=== PATIENT | female | born 1940 | race Asian ===

== ENCOUNTER 2018-05-14 15:12 | Emergency (ER) | payer MEDICARE, MEDICAID ==
[~2018-05-14] VITALS: Ht 160 cm; Wt 54.4 kg
[2018-05-14 15:20] VITALS: BP 130/52
--- NOTE | 2018-05-14 15:20 | NUR ---
ED Nurse Note: BROUGHT IN BY RA 829 FROM HOME DUE TO SLIPPED AND FALL INJURY. C/O RIGHT HIP PAIN 11/28, NO BRUISES AND NO TRAUMA NOTED ON THE SITE. PER PT, SHE SLIPPED AND FELL AT THE [facility]. DENIES HEAD INJURY NOR LOC. PAIN REMAINED AFTER SHE CAME HOME SO HER CALLED 911. A/OX4. NO S/S OF DISTRESS. WILL CONTINUE TO MONITOR.
[2018-05-14] MEDS ORDERED: Morphine Sulfate 2mg/ml Inj(IV/IM USE ONLY) IVP ONE ×2 (15:30→19:45)
--- NOTE | 2018-05-14 15:38 | Emergency Room Report ---
History of Present Illness General Chief Complaint: Multiple Trauma/Fall Source: Patient, EMS Present Illness HPI 77-year-old female with history of hypertension presenting with fall. Patient says that she went to an adult care center, when she went home, she had a slip and fall. She fell onto her right side. She says she did not hit her head or lose consciousness. She she was able to crawl and get her her phone and then call her sister. Her then called 911 and brought her to the emergency room. She happening of severe right-sided leg pain. No chest pain or shortness of breath no headache no blurry vision. does not Take any blood thinners Allergies: Coded Allergies: No Known Allergies (Unverified , 05/14/18) Patient History Past Medical History: see triage record Past Surgical History: none Pertinent Family History: none Reviewed Nursing Documentation: PMH: Agreed; PSxH: Agreed Nursing Documentation-PMH Past Medical History: No History, Except For Hx Cardiac Problems: No - high cholesterol Review of Systems All Other Systems: negative except mentioned in HPI Physical Exam Vital Signs Date Time Temp Pulse Resp B/P (MAP) Pulse Ox O2 Delivery O2 Flow Rate FiO2 05/14/18 15:12 98.8 86 14 169/65 98 Room Air Sp02 EP Interpretation: reviewed, normal General Appearance: alert, GCS 15, non-toxic, moderate distress Head: normocephalic, atraumatic Eyes: bilateral eye normal inspection, bilateral eye PERRL, bilateral eye EOMI ENT: normal ENT inspection, normal pharynx, normal voice, moist mucus membranes Neck: normal inspection, full range of motion, supple Respiratory: normal inspection, lungs clear, normal breath sounds, no respiratory distress, no retraction, no wheezing, speaking full sentences, chest symmetrical Cardiovascular #1: normal inspection, regular rate, rhythm, no edema, normal capillary refill Cardiovascular #2: 2+ radial (R), 2+ radial (L) Gastrointestinal: normal inspection, non tender, soft, non-distended, no guarding Musculoskeletal: other - Right lower extremity is slightly shortened and externally rotated, limited range of motion secondary to pain. Distal pulses are intact. No ecchymosis or hematoma. Neurologic: normal inspection, alert, oriented x3, responsive, motor strength/ tone normal, sensory intact, normal gait, speech normal Psychiatric: normal inspection, judgement/insight normal, memory normal Skin: normal inspection, normal color, no rash, warm/dry, well hydrated, normal turgor Medical Decision Making Diagnostic Impression: Primary Impression: Femur fracture, right ER Course 77-year-old female with right-sided hip pain status post fall DDX: Fracture versus contusion. Did not hit her head or lose consciousness. She is awake alert patients for and neurologically intact Plan: Obtain labs, ua, EKG, CXR X-rays of the right hip ER course: Patient has been monitored during ED stay, HD stable Given pain medication +femoral neck fx neurovascularly intact Disposition: Patient is to be xferred to [place] due to insurance purposes spoke with Dr Feliciano who has accepted pt for xfer Please note that this Emergency Department Report was dictated using [employer]unalyticscard cutter helper technology software, occasionally this can lead to erroneous entry secondary to interpretation by the dictation equipment. EKG Diagnostic Results EP Interpretation: Yes Rate: normal Rhythm: NSR ST Segments: No acute changes ASA given to patient: No Rhythm Strip EP Interpretation: Yes Rate: 92 Rhythm: NSR, no PVCs, no ectopy Chest X-ray CXR: Ordered: Yes 1 view Indication: pre op EP interpretation: Yes Interpretation: slight cardiomegaly, blunting of R costophrenic angle Impression:slight cardiomegaly, blunting of R costophrenic angle Electronically signed by Leyt Brown MD Xray: Right hip Complete Indication: Pain EP Interpretation: Yes Interpretation: femoral neck fx Impression: femoral neck fx Electronically signed by Lety Brown MD Xray: Right femur 2 view Indication: Pain EP Interpretation: Yes Interpretation: femoral neck fx Impression:femoral neck fx Electronically signed by Lety Brown MD Laboratory Tests Test 05/14/18 15:55 05/14/18 16:55 White Blood Count 7.2 K/UL (4.8-10.8) Red Blood Count 4.40 M/UL (4.20-5.40) Hemoglobin 13.1 G/DL (12.0-16.0) Hematocrit 40.7 % (37.0-47.0) Mean Corpuscular Volume 92 FL (80-99) Mean Corpuscular Hemoglobin 29.8 PG (27.0-31.0) Mean Corpuscular Hemoglobin Concent 32.2 G/DL (32.0-36.0) Red Cell Distribution Width 13.2 % (11.6-14.8) Platelet Count 207 K/UL (150-450) Mean Platelet Volume 7.0 FL (6.5-10.1) Neutrophils (%) (Auto) 67.4 % (45.0-75.0) Lymphocytes (%) (Auto) 23.1 % (20.0-45.0) Monocytes (%) (Auto) 7.0 % (1.0-10.0) Eosinophils (%) (Auto) 2.1 % (0.0-3.0) Basophils (%) (Auto) 0.5 % (0.0-2.0) Prothrombin Time 10.2 SEC (9.30-11.50) Prothrombin Time INR 1.0 (0.9-1.1) PTT 24 SEC (23-33) Sodium Level 143 MMOL/L (136-145) Potassium Level 3.9 MMOL/L (3.5-5.1) Chloride Level 105 MMOL/L (98-107) Carbon Dioxide Level 25 MMOL/L (21-32) Anion Gap 13 mmol/L (5-15) Blood Urea Nitrogen 14 mg/dL (7-18) Creatinine 0.7 MG/DL (0.55-1.30) Estimate Glomerular Filtration Rate mL/min (>60) Glucose Level 145 MG/DL (74-106) H Calcium Level 9.8 MG/DL (8.5-10.1) Total Bilirubin 0.3 MG/DL (0.2-1.0) Aspartate Amino Transferase (AST) 21 U/L (15-37) Alanine Aminotransferase (ALT) 34 U/L (12-78) Alkaline Phosphatase 58 U/L (46-116) Total Creatine Kinase 97 U/L (26-308) Total Protein 7.4 G/DL (6.4-8.2) Albumin 3.7 G/DL (3.4-5.0) Globulin 3.7 g/dL Albumin/Globulin Ratio 1.0 (1.0-2.7) Urine Color Pending Urine Appearance Pending Urine pH Pending Urine Specific [place] Pending Urine Protein Pending Urine Glucose (UA) Pending Urine Ketones Pending Urine Blood Pending Urine Nitrite Pending Urine Bilirubin Pending Urine Urobilinogen Pending Urine Leukocyte Esterase Pending Last Vital Signs Date Time Temp Pulse Resp B/P (MAP) Pulse Ox O2 Delivery O2 Flow Rate FiO2 05/14/18 15:20 88 21 Room Air 05/14/18 15:20 98.8 130/52 100 Disposition: XFER SHT-[facility]M HOSP Condition: Serious Scripts Unable to Obtain Active Prescriptions or Reported Meds Lety Brown M.D. May 14, 2018 15:38
[2018-05-14 16:22] LABS: BASOPHILS % (AUTO) 0.5 % (0.0-2.0); EOSINOPHILS % (AUTO) 2.1 % (0.0-3.0); HEMATOCRIT 40.7 % (37.0-47.0); HEMOGLOBIN 13.1 G/DL (12.0-16.0); LYMPHOCYTES % (AUTO) 23.1 % (20.0-45.0); MEAN CORPUSCULAR VOLUME 92 FL (80-99); NEUTROPHILS % (AUTO) 67.4 % (45.0-75.0); PLATELET COUNT 207 K/UL (150-450); RED CELL DISTRIBUTION WIDTH 13.2 % (11.6-14.8); WHITE BLOOD COUNT 7.2 K/UL (4.8-10.8)
--- NOTE | 2018-05-14 16:25 | NUR ---
ED Nurse Note: ERMD MADE AWARE THE PT WANTS TO URINATE. RECEIVED VERBAL ORDER TO INSERT COHEN CATH DUE TO PT'S FRACTURE. 16 FR COHEN CATH INSERTED.
[2018-05-14 16:34] LABS: ANION GAP 13 mmol/L (5-15); BLOOD UREA NITROGEN 14 mg/dL (7-18); CALCIUM 9.8 MG/DL (8.5-10.1); CARBON DIOXIDE 25 MMOL/L (21-32); CHLORIDE 105 MMOL/L (98-107); CREATININE 0.7 MG/DL (0.55-1.30); POTASSIUM 3.9 MMOL/L (3.5-5.1); SODIUM 143 MMOL/L (136-145)
[2018-05-14 16:40] LABS: ALANINE AMINOTRANSFERASE 34 U/L (12-78); ALBUMIN 3.7 G/DL (3.4-5.0); ALKALINE PHOSPHATASE 58 U/L (46-116); ASPARTATE AMINO TRANSFERASE 21 U/L (15-37); BILIRUBIN,TOTAL 0.3 MG/DL (0.2-1.0); CREATINE KINASE 97 U/L (26-308)
--- NOTE | 2018-05-14 16:54 | NUR ---
ED Nurse Note: PT'S BELONGINGS EXCEPT FOR ONE NECKLACE WERE SENT HOME WITH PT'S SISTER, RAVEN LAWRENCE. PT SIGNED BELONGING LIST. URINE COLLECTED AND SENT DOWN TO THE LAB.
--- NOTE | 2018-05-14 17:10 | NUR ---
spoke to [facility]it will call back for md to md consult
[2018-05-14 17:19] LABS: APPEARANCE,URINE SLIGHTLY CLOUDY; BILIRUBIN, URINE NEGATIVE (NEGATIVE); COLOR,URINE PALE YELLOW; GLUCOSE, URINE (UA) NEGATIVE (NEGATIVE); KETONES,URINE NEGATIVE (NEGATIVE); LEUKOCYTE ESTERASE ,URINE 2+ (NEGATIVE); NITRITE,URINE NEGATIVE (NEGATIVE); PH,URINE 6.5 (4.5-8.0); PROTEIN,URINE NEGATIVE (NEGATIVE); UROBILINOGEN,URINE NORMAL MG/DL (0.0-1.0)
[2018-05-14] MEDS ORDERED: Lidocaine 1% MPF 10mg/ml 5ml INJ ONE (18:00)
--- NOTE | 2018-05-14 19:10 | NUR ---
HAND-OFF: Report given to LUCY PERRY. NO S/S OF DISTRESS. PT AND PT'S FAMILY MEMBER MADE AWARE OF THE TRANSFER. Addendum: 05/14/18 at 1929 by BEN Ekaterina AYALA.
--- NOTE | 2018-05-14 19:17 | Diagnostic Imaging Report ---
Indication: Right hip pain Thigh pain Findings: 2 views of the right femur and hip were obtained. There is an acute slightly displaced fracture of the femoral neck demonstrated. The bones are osteopenic. IMPRESSION: Acute right hip fracture
--- NOTE | 2018-05-14 19:17 | Diagnostic Imaging Report ---
Indication: Dyspnea Comparison: None A single view chest radiograph was obtained. Findings: No definite infiltrate or pulmonary vascular congestion identified. The heart is enlarged. The aorta is mildly enlarged consistent with atherosclerotic vascular disease. The bones are osteopenic. Impression: No acute disease
--- NOTE | 2018-05-14 20:00 | NUR ---
ED Nurse Note: Patient A&Ox4 with niece at bedside.
--- NOTE | 2018-05-14 21:00 | NUR ---
ED Nurse Note: Patient tolerated medication well and reports no pain at this time.
[2018-05-14 21:30] VITALS: BP 130/52
--- NOTE | 2018-05-14 21:54 | NUR ---
ED Nurse Note: Patient transported to [place] 30 minutes ago, report called in to RN.
--- NOTE | 2018-05-15 14:57 | Cardiology Report ---
APPROVED REPORT EKG Measurement Heart [id number] NE [id number] Sinus rhythm with premature atrial complexes Abnormal ECG
== END 2018-05-14 21:30 | disposition short-term general hospital (02) ==
LOC: EDBD 15:12 → EMR 15:47
DX: S72.001A Fracture of unspecified part of neck of right femur, initial encounter for closed fracture (principal); W01.0XXA Fall on same level from slipping, tripping and stumbling without subsequent striking against object, initial encounter; Y92.9 Unspecified place or not applicable; E78.00 Pure hypercholesterolemia, unspecified; I51.7 Cardiomegaly
CPT/HCPCS: 36415; 71045; 73502; 73552; 80053; 81003; 82550; 85025; 85610; 85730; 86850; 86900; 86901; 87086; 93005; 96361; 96372; 96374; 96375; 96376; 99285; J0696; J2270